=== PATIENT | female | born 1980 | race Caucasian/White ===

== ENCOUNTER → 2018-12-27 | Outpatient (CLI) | payer OTHER ==
[~2018-12-27] MED LIST: ADIPEX-P37.5 MG PO; ANAPROX DS550 MG PO; ASTEPRO205.5 MCG/ NS; ATROVENT HFA14 GM INH; BENADRYL25 MG PO; CARISOPRODOL 3350 MG PO; CENTRUM SILVER1 EAC2 PO; CIPRO500 MG PO; CO Q-1010 MG PO; LEVOTHYROXINE 0.1 MG PO; MAGNESIUM OXID400 MG PO; NORCO 5-325 TA1 EACH PO; ORTHO TRI-CYCL1 EACH PO; PEPCID20 MG PO; PHENAZOPYRIDIN200 M2 PO; ROBAXIN 750 MG750 M1 PO; VICODIN ES TAB1 EACH PO; VITAMIN D1000 UNI1 PO; ZOFRAN ODT4 MG PO; ZYRTEC10 M2 PO
[2018-12-27 11:46] LABS: CREATININE 0.9 mg/dL (0.6-1.0)
== END ==
LOC: MRI 10:45
PROVIDERS: Psychiatry & Neurology Neurology
DX: R51 Headache (principal)

== ENCOUNTER → 2019-01-20 | Outpatient (CLI) | payer OTHER | LOC: MRI 12:07 | DX: G08 Intracranial and intraspinal phlebitis and thrombophlebitis (principal); D68.59 Other primary thrombophilia ==